=== PATIENT | female | born 1955 | race Caucasian/White ===

== ENCOUNTER 2017-10-15 23:42 | Emergency (ER) | payer OTHER ==
[~2017-10-15] VITALS: Ht 172.7 cm; Wt 68.0 kg
[~2017-10-15 23:42] MED LIST: ANAPROX DS550 MG PO; ANTIBIOTIC O500 U/GM TP; ANTIVERT/2525 MG PO; BACTRIM DS 8001 TA1 PO; BENADRYL25 MG PO; COUMADIN5 M2 PO; DITROPAN5 MG PO; EPI-PEN1 MG/ML MR; ESCITALOPRAM OX20 MG PO; FUROSEMIDE40 MG PO; HYCODAN/HYDROMET5 ML PO; KEFLEX500 MG PO; LIPITOR20 MG PO; LOVENOX100 MG/1 M SQ; MACROBID100 M1 PO; MECLIZINE HCL25 M2 PO; METOPROLOL25 MG PO; MOTRIN800 MG PO; OMEPRAZOLE D/R20 MG PO; PEPCID20 MG PO; POTASSIUM CHLO20 ME3 PO; PREDNICOT20 MG PO; ZANTAC150 MG PO
[2017-10-16] MEDS ORDERED: Motrin,Rufen800 MG PO (01:02)
== END 2017-10-16 01:26 | disposition home or self-care (01) ==
LOC: ED 23:42
DX: S93.402A Sprain of unspecified ligament of left ankle, initial encounter (principal); S83.412A Sprain of medial collateral ligament of left knee, initial encounter; Z79.899 Other long term (current) drug therapy; Z79.02 Long term (current) use of antithrombotics/antiplatelets; Z87.891 Personal history of nicotine dependence; W18.09XA Striking against other object with subsequent fall, initial encounter; Y93.89 Activity, other specified; Y92.89 Other specified places as the place of occurrence of the external cause; Y99.8 Other external cause status

== ENCOUNTER 2018-07-03 12:53 | Emergency (ER) | payer OTHER ==
[~2018-07-03] VITALS: Ht 167.6 cm; Wt 68.0 kg
[~2018-07-03 12:53] MED LIST changes: +Motrin,Rufen800 MG PO
[2018-07-03 14:44] LABS: BASO # 0.1 10*3/uL (0.0-0.1); BASO % 1.2 % (0.0-1.0); EOS # 0.3 10*3/uL (0.0-0.4); EOS % 3.2 % (1.0-4.0); HEMATOCRIT 49.9 % (37.0-47.0); HEMOGLOBIN 16.4 g/dl (12.0-16.0); LYMPH # 1.7 10*3/uL (1.3-4.4); LYMPH % 20.6 % (27.0-41.0); MEAN CELL VOLUME 92.4 fl (81.0-99.0); MEAN CORPUSCULAR HGB 30.4 pg (27.0-31.0); MEAN CORPUSCULAR HGB CONC 32.9 g/dl (33.0-37.0); MEAN PLATELET VOLUME 10.6 fl (9.6-12.3); MONO # 0.6 10*3/uL (0.1-1.0); MONO % 7.9 % (3.0-9.0); NEUT # 5.4 10*3/uL (2.3-7.9); NEUT % 66.7 % (47.0-73.0); PLATELET COUNT AUTOMATED 530 10*3/uL (130-400); RED CELL DISTRI WIDTH 14.7 % (0-14.5); WHITE BLOOD COUNT 8.1 10*3/uL (4.8-10.8)
[2018-07-03 15:13] LABS: ALBUMIN 3.7 gm/dl (3.1-4.5); ALKALINE PHOSPHATASE 90 U/L (45-117); BUN 11 mg/dl (7-24); CHLORIDE 109 mmol/L (98-107); CREATININE 0.82 mg/dL (0.55-1.02); SGOT/AST 26 IU/L (3-35); SGPT/ALT 27 U/L (12-78); SODIUM 141 mmol/L (136-145); TOTAL PROTEIN 7.9 gm/dL (6.4-8.2)
[2018-07-03] MEDS ORDERED: PROVENTIL HFA6.7 GM INH (16:21)
[2018-07-03] MEDS ORDERED: TESSALON PERLE100 M1 PO (16:21)
[2018-07-03] MEDS ORDERED: DOXYCYCLINE100 M3 PO (16:21)
[2018-07-03] MEDS ORDERED: PREDNISONE20 M1 PO (16:21)
== END 2018-07-03 16:39 | disposition home or self-care (01) ==
LOC: ED 12:53
PROVIDERS: Physician Assistant
DX: J40 Bronchitis, not specified as acute or chronic (principal); Z88.8 Allergy status to other drugs, medicaments and biological substances; Z79.899 Other long term (current) drug therapy; Z79.01 Long term (current) use of anticoagulants; Z90.49 Acquired absence of other specified parts of digestive tract; Z87.891 Personal history of nicotine dependence

== ENCOUNTER 2019-01-15 15:28 | Emergency (ER) | payer OTHER ==
[~2019-01-15] VITALS: Ht 167.6 cm; Wt 68.0 kg
[~2019-01-15 15:28] MED LIST changes: +DOXYCYCLINE100 M3 PO; +PREDNISONE20 M1 PO; +PROVENTIL HFA6.7 GM INH; +TESSALON PERLE100 M1 PO
[2019-01-15 15:56] LABS: BASO # 0.2 10*3/uL (0.0-0.1); BASO % 1.5 % (0.0-1.0); EOS # 0.3 10*3/uL (0.0-0.4); EOS % 2.3 % (1.0-4.0); HEMATOCRIT 45.8 % (37.0-47.0); LYMPH # 2.8 10*3/uL (1.3-4.4); LYMPH % 25.9 % (27.0-41.0); MEAN CELL VOLUME 91.8 fl (81.0-99.0); MEAN CORPUSCULAR HGB 30.1 pg (27.0-31.0); MEAN CORPUSCULAR HGB CONC 32.8 g/dl (33.0-37.0); MEAN PLATELET VOLUME 10.8 fl (9.6-12.3); MONO # 0.6 10*3/uL (0.1-1.0); MONO % 5.8 % (3.0-9.0); NEUT # 6.8 10*3/uL (2.3-7.9); NEUT % 64.1 % (47.0-73.0); PLATELET COUNT AUTOMATED 592 10*3/uL (130-400); RED BLOOD COUNT 4.99 10*6/uL (4.10-5.10); RED CELL DISTRI WIDTH 14.9 % (0-14.5); WHITE BLOOD COUNT 10.7 10*3/uL (4.8-10.8)
[2019-01-15 16:09] LABS: ACT PARTIAL THROMBO TIME 27.3 SECONDS (20.0-32.1); INTERNATIONAL NORM RATIO 1.1 (2.0-3.5)
[2019-01-15 16:13] LABS: ALBUMIN 3.7 gm/dl (3.1-4.5); ALKALINE PHOSPHATASE 65 U/L (45-117); BUN 13 mg/dl (7-24); CHLORIDE 110 mmol/L (98-107); CREATININE 0.89 mg/dL (0.55-1.02); POTASSIUM 3.6 mmol/L (3.5-5.1); SGOT/AST 19 IU/L (3-35); SGPT/ALT 28 U/L (12-78); SODIUM 141 mmol/L (136-145); TOTAL PROTEIN 6.9 gm/dL (6.4-8.2)
[2019-01-15 16:15] LABS: TROPONIN I < 0.015 ng/ml (<0.045)
[2019-01-15 17:02] LABS: BILIRUBIN NEGATIVE (NEGATIVE); BLOOD NEGATIVE (NEGATIVE); CLARITY CLEAR (CLEAR); COLOR YELLOW (YELLOW); GLUCOSE NEGATIVE (NEGATIVE); KETONE NEGATIVE (NEGATIVE); LEUKO ESTERASE NEGATIVE (NEGATIVE); NITRITE NEGATIVE (NEGATIVE); PH 5.5 (5.0-9.0)
[2019-01-15 17:34] LABS: BACTERIA TRACE
[2019-03-08] MEDS ORDERED: LISINOPRIL2.5 MG PO (10:35)
[2019-03-08] MEDS ORDERED: VITAMIN D5000 UNI1 PO (10:35)
[2019-03-08] MEDS ORDERED: LEADER ASPIRIN325 MG PO (10:37)
== END 2019-01-15 17:08 | disposition home or self-care (01) ==
LOC: ED 15:28
PROVIDERS: Family Medicine
DX: T67.5XXA Heat exhaustion, unspecified, initial encounter (principal); E86.0 Dehydration; R42 Dizziness and giddiness; R53.1 Weakness; X30.XXXA Exposure to excessive natural heat, initial encounter; Y93.89 Activity, other specified; Y92.89 Other specified places as the place of occurrence of the external cause; Y99.8 Other external cause status

== ENCOUNTER → 2019-03-11 | Day surgery (SDC) | payer OTHER ==
[~2019-03-11] VITALS: Ht 168.9 cm; Wt 75.3 kg
[~2019-03-11] MED LIST changes: +LEADER ASPIRIN325 MG PO; +LISINOPRIL2.5 MG PO; +VITAMIN D5000 UNI1 PO
[2019-03-11 09:06] VITALS: BP 122/71
[2019-03-11 09:57] VITALS: BP 114/68
[2019-03-11 10:08] VITALS: BP 118/72
[2019-03-11 10:27] VITALS: BP 121/72
== END | disposition home or self-care (01) ==
LOC: SDC 03-08 01:18
DX: Z12.11 Encounter for screening for malignant neoplasm of colon (principal); K57.30 Diverticulosis of large intestine without perforation or abscess without bleeding; I10 Essential (primary) hypertension; K21.9 Gastro-esophageal reflux disease without esophagitis; Z98.890 Other specified postprocedural states; Z98.51 Tubal ligation status; Z79.899 Other long term (current) drug therapy

== ENCOUNTER 2019-06-25 17:37 | Inpatient (IN) | payer OTHER ==
[~2019-06-25] VITALS: Ht 167.6 cm; Wt 75.1 kg
[2019-06-25 17:47] VITALS: BP 115/62
[2019-06-25 18:25] LABS: BASO # 0.1 10*3/uL (0.0-0.1); EOS # 0.2 10*3/uL (0.0-0.4); EOS % 1.6 % (1.0-4.0); HEMATOCRIT 49.7 % (37.0-47.0); HEMOGLOBIN 16.4 g/dl (12.0-16.0); LYMPH # 1.7 10*3/uL (1.3-4.4); LYMPH % 13.8 % (27.0-41.0); MEAN CELL VOLUME 92.9 fl (81.0-99.0); MEAN CORPUSCULAR HGB 30.7 pg (27.0-31.0); MEAN PLATELET VOLUME 10.8 fl (9.6-12.3); MONO # 0.5 10*3/uL (0.1-1.0); MONO % 4.3 % (3.0-9.0); NEUT # 9.6 10*3/uL (2.3-7.9); PLATELET COUNT AUTOMATED 473 10*3/uL (130-400); RED BLOOD COUNT 5.35 10*6/uL (4.10-5.10); RED CELL DISTRI WIDTH 14.6 % (0-14.5); WHITE BLOOD COUNT 12.2 10*3/uL (4.8-10.8)
[2019-06-25 18:39] LABS: ACT PARTIAL THROMBO TIME 28.5 SECONDS (20.0-32.1); INTERNATIONAL NORM RATIO 1.2 (2.0-3.5)
[2019-06-25 18:41] LABS: ALBUMIN 3.9 gm/dl (3.1-4.5); ALKALINE PHOSPHATASE 72 U/L (45-117); BUN 17 mg/dl (7-24); CHLORIDE 110 mmol/L (98-107); CREATININE 0.76 mg/dL (0.55-1.02); POTASSIUM 3.7 mmol/L (3.5-5.1); SGOT/AST 16 IU/L (3-35); SGPT/ALT 22 U/L (12-78); SODIUM 143 mmol/L (136-145); TOTAL PROTEIN 7.5 gm/dL (6.4-8.2)
[2019-06-25 18:42] LABS: TROPONIN I < 0.015 ng/ml (<0.045)
--- NOTE | 2019-06-25 20:17 | NUR ---
REPORT CALLED TO KAYLIE MERRITT 4E
--- NOTE | 2019-06-25 20:18 | NUR ---
PATIENT TRANSPORTED TO VIA RENATO MERRITT
[2019-06-25 20:20] VITALS: BP 118/56
--- NOTE | 2019-06-25 20:20 | NUR ---
A 64, admitted to , under the services of TOM Grande DO with a diagnosis of ORTHOSTATIC HYPOTENSION, NEAR SYNCOPE, DEHYDRATION. Chief complaint is DIZZINESS. Patient arrived via bed from ER. Monitor applied. Initial assessment completed. Vital signs taken and recorded. TOM GRANDE DO notified of admission to the unit. Orders received. See assessment for past medical history, medications and allergies. Patient and/or family oriented to unit. [facility] visitation policy reviewed. Clothing/patient valuable form completed. KAYLIE BOWMAN
--- NOTE | 2019-06-25 20:40 | NUR ---
DR MCDERMOTT ON THE FLOOR AND IS AWARE OF NEW ADMISSION, TOLD HIM THAT PT HOME MEDICATIONS ARE UP TO DATE
--- NOTE | 2019-06-25 23:33 | NUR ---
IV started right antecubital with #22 angiocath after 1 attempts. The IV site was prepped with Chloraprep. Heparin lock attached. IV solution NS infusing at 80 cc/hr. Sterile dressing applied. Patient tolerated precedure well. Procedure performed according to [facility] policy & procedure. KAYLIE BOWMAN
[2019-06-26] VITALS: BP 118/67
--- NOTE | 2019-06-26 03:22 | NUR ---
24 HR chart check completed.
--- NOTE | 2019-06-26 03:44 | NUR ---
Patient sleeping. Respirations relaxed and easy. EDGARS KAYLIE MCCORD
--- NOTE | 2019-06-26 06:04 | NUR ---
CALLED [facility] FOR NEW CONSULT AND THEY SENT A MESSAGE OUT TO HIM AND HE WILL CALL BACK
[2019-06-26 06:29] LABS: BASO # 0.1 10*3/uL (0.0-0.1); BASO % 1.1 % (0.0-1.0); EOS # 0.2 10*3/uL (0.0-0.4); EOS % 2.7 % (1.0-4.0); HEMATOCRIT 44.6 % (37.0-47.0); HEMOGLOBIN 14.5 g/dl (12.0-16.0); LYMPH # 1.6 10*3/uL (1.3-4.4); LYMPH % 19.3 % (27.0-41.0); MEAN CELL VOLUME 94.1 fl (81.0-99.0); MEAN CORPUSCULAR HGB 30.6 pg (27.0-31.0); MEAN CORPUSCULAR HGB CONC 32.5 g/dl (33.0-37.0); MEAN PLATELET VOLUME 11.1 fl (9.6-12.3); MONO # 0.3 10*3/uL (0.1-1.0); NEUT % 72.5 % (47.0-73.0); PLATELET COUNT AUTOMATED 372 10*3/uL (130-400); RED BLOOD COUNT 4.74 10*6/uL (4.10-5.10); RED CELL DISTRI WIDTH 14.2 % (0-14.5); WHITE BLOOD COUNT 8.2 10*3/uL (4.8-10.8)
[2019-06-26 07:06] LABS: ALBUMIN 3.3 gm/dl (3.1-4.5); ALKALINE PHOSPHATASE 55 U/L (45-117); BUN 15 mg/dl (7-24); CHLORIDE 114 mmol/L (98-107); CHOLESTEROL 96 mg/dL (<200); CREATININE 0.73 mg/dL (0.55-1.02); FREE T4 0.97 ng/dl (0.76-1.46); HDL CHOLESTEROL 37 mg/dl (40-60); LDL CHOLESTEROL 44 mg/dL (9-159); PHOSPHOROUS 2.1 mg/dL (2.5-4.9); POTASSIUM 3.5 mmol/L (3.5-5.1); SGOT/AST 12 IU/L (3-35); SGPT/ALT 18 U/L (12-78); SODIUM 146 mmol/L (136-145); TOTAL PROTEIN 6.2 gm/dL (6.4-8.2); TRIGLYCERIDES 73 mg/dl (<150); VLDL CHOLESTEROL 15 mg/dL (6-40)
[2019-06-26 07:21] LABS: ACT PARTIAL THROMBO TIME 27.9 SECONDS (20.0-32.1); INTERNATIONAL NORM RATIO 1.2 (2.0-3.5)
[2019-06-26 08:00] VITALS: BP 118/67
[2019-06-26 08:01] LABS: VITAMIN D, 25-HYDROXY 62.5 ng/mL (30-100)
--- NOTE | 2019-06-26 10:06 | NUR ---
[employer] in to talk to patient. Patient states lives at home with self. There are 1 steps in the home. Physician: Dr Jose Alejandro Ca [facility]acy: [facility], [address] Home health services: no Patient's level of ADLs: INDEPENDENT Patient has working utilities: Yes DME: No Follow-up physician's appointment after d/c: Yes Does patient want to access PORTAL?: No Discharge plan Patient lives alone without home health services. Anticipate pt returning home without any needs. . AISHA DAMON
--- NOTE | 2019-06-26 10:37 | NUR ---
CALLED DR BLACKMAN TO LET HIM KNNOW ABOUT ORTHOS THAT WERE NEGATIVE
--- NOTE | 2019-06-26 11:28 | NUR ---
PATIENT AMBULATED ENTIRE WHITE. GAIT STEADY. NO LIGHTHEADEDNESS OR DIZZINESS. ASYMPTOMATIC. BLOOD PRESSURE 134/70. HR 80. NOTIFIED.
[2019-06-26 12:00] VITALS: BP 124/75
[2019-06-26] MEDS ORDERED: ZOFRAN4 MG PO (12:18)
--- NOTE | 2019-06-26 13:00 | NUR ---
PATIENT DISCHARGED TO HOME. ALL PERSONAL BELONGINGS SENT WITH PATIENT. IV AND KETTLE ROOM HELPER DISCONTINUED. DISCHARGE INSTRUCTIONS GIVEN AND REVIEWED. PATIENT INSTRUCTED THAT ONE PRESCRIPTION WAS SENT TO [facility]. INSTRUCTED TO FOLLOW UP WITH PCP WITHIN ONE WEEK.
== END 2019-06-26 13:00 | disposition home or self-care (01) | DRG 204 ==
LOC: ED 17:37 → EDHOLD 19:34 → 4E 20:11
PROVIDERS: Emergency Medicine; Internal Medicine; ADMIT Emergency Medicine
DX: I95.1 Orthostatic hypotension (principal); E86.0 Dehydration; D47.3 Essential (hemorrhagic) thrombocythemia; E80.6 Other disorders of bilirubin metabolism; E87.8 Other disorders of electrolyte and fluid balance, not elsewhere classified; E78.5 Hyperlipidemia, unspecified; F32.9 Major depressive disorder, single episode, unspecified; I10 Essential (primary) hypertension; K21.9 Gastro-esophageal reflux disease without esophagitis; A08.4 Viral intestinal infection, unspecified; Z95.2 Presence of prosthetic heart valve; Z95.0 Presence of cardiac pacemaker; Z79.82 Long term (current) use of aspirin; Z79.899 Other long term (current) drug therapy; Z90.49 Acquired absence of other specified parts of digestive tract; Z98.51 Tubal ligation status; Z87.891 Personal history of nicotine dependence; Z80.0 Family history of malignant neoplasm of digestive organs; Z82.0 Family history of epilepsy and other diseases of the nervous system

== ENCOUNTER 2019-12-18 10:35 | Emergency (ER) | payer OTHER ==
[~2019-12-18] VITALS: Ht 167.6 cm; Wt 68.0 kg
[~2019-12-18 10:35] MED LIST changes: +ZOFRAN4 MG PO
[2019-12-18] MEDS ORDERED: GOOD NEIGHBOR M25 M1 PO (11:10)
== END 2019-12-18 11:16 | disposition home or self-care (01) ==
LOC: ED 10:35
DX: H81.13 Benign paroxysmal vertigo, bilateral (principal); K21.9 Gastro-esophageal reflux disease without esophagitis; I10 Essential (primary) hypertension; Z79.899 Other long term (current) drug therapy; Z79.82 Long term (current) use of aspirin; Z87.891 Personal history of nicotine dependence

== ENCOUNTER → 2020-02-09 | Outpatient (CLI) | payer OTHER ==
[~2020-02-09] MED LIST changes: +GOOD NEIGHBOR M25 M1 PO
== END | disposition home or self-care (01) ==
LOC: MAMMO 13:53
PROVIDERS: ATTEND Nurse Practitioner Family
DX: Z12.31 Encounter for screening mammogram for malignant neoplasm of breast (principal)

== ENCOUNTER → 2022-02-18 | Outpatient (CLI) | payer MEDICARE, OTHER | END | disposition home or self-care (01) | LOC: RESCLI 14:12 | PROVIDERS: ATTEND Internal Medicine | DX: I10 Essential (primary) hypertension (principal); D45 Polycythemia vera; E78.2 Mixed hyperlipidemia; E55.9 Vitamin D deficiency, unspecified; F10.10 Alcohol abuse, uncomplicated; I48.91 Unspecified atrial fibrillation; I25.10 Atherosclerotic heart disease of native coronary artery without angina pectoris; K57.90 Diverticulosis of intestine, part unspecified, without perforation or abscess without bleeding; K57.30 Diverticulosis of large intestine without perforation or abscess without bleeding; Z95.2 Presence of prosthetic heart valve; Z90.49 Acquired absence of other specified parts of digestive tract; Z98.890 Other specified postprocedural states; Z88.1 Allergy status to other antibiotic agents; Z79.82 Long term (current) use of aspirin; Z79.899 Other long term (current) drug therapy ==

== ENCOUNTER → 2022-04-11 | Outpatient (CLI) | payer MEDICARE, OTHER ==
[~2022-04-11] MED LIST changes: +ASPIR-TRIN325 MG PO; +HYDROXYUREA500 MG PO; +XARE20MG PO
== END | disposition home or self-care (01) ==
LOC: CARD 11:52
PROVIDERS: ATTEND Internal Medicine Cardiovascular Disease
DX: Z95.2 Presence of prosthetic heart valve (principal)

== ENCOUNTER → 2022-08-26 | Outpatient (CLI) | payer MEDICARE, OTHER | END | disposition home or self-care (01) | LOC: MAMMO 08:46 | PROVIDERS: ATTEND Nurse Practitioner Family | DX: Z12.31 Encounter for screening mammogram for malignant neoplasm of breast (principal) ==

== ENCOUNTER 2022-10-02 13:47 | Inpatient (IN) | payer MEDICARE, MEDICAID ==
[~2022-10-02] VITALS: Ht 167.6 cm; Wt 80.3 kg
[2022-10-02 13:48] VITALS: BP 140/76
[2022-10-02 14:36] LABS: BASO # 0.1 10*3/uL (0.0-0.1); BASO % 0.8 % (0.0-1.0); EOS # 0.1 10*3/uL (0.0-0.4); EOS % 1.6 % (1.0-4.0); HEMATOCRIT 46.1 % (37.0-47.0); LYMPH % 11.7 % (27.0-41.0); MEAN CELL VOLUME 96.2 fl (81.0-99.0); MEAN CORPUSCULAR HGB 32.6 pg (27.0-31.0); MEAN CORPUSCULAR HGB CONC 33.8 g/dl (33.0-37.0); MEAN PLATELET VOLUME 11.1 fl (9.6-12.3); MONO # 0.4 10*3/uL (0.1-1.0); NEUT # 6.9 10*3/uL (2.3-7.9); NEUT % 80.4 % (47.0-73.0); PLATELET COUNT AUTOMATED 221 10*3/uL (130-400); RED BLOOD COUNT 4.79 10*6/uL (4.10-5.10); RED CELL DISTRI WIDTH 16.3 % (0-14.5); WHITE BLOOD COUNT 8.6 10*3/uL (4.8-10.8)
[2022-10-02 14:47] LABS: ACT PARTIAL THROMBO TIME 32.5 SECONDS (20.0-32.1); INTERNATIONAL NORM RATIO 1.3 (2.0-3.5)
[2022-10-02 15:08] LABS: ALKALINE PHOSPHATASE 74 U/L (46-116); BUN 9 mg/dl (9-23); CHLORIDE 107 mmol/L (98-107); LIPASE 41 U/L (12-53); POTASSIUM 4.3 mmol/L (3.4-5.1); SGPT/ALT 17 U/L (10-49)
[2022-10-02 19:04] VITALS: BP 132/75
[2022-10-03 07:53] LABS: BASO # 0.1 10*3/uL (0.0-0.1); BASO % 0.9 % (0.0-1.0); EOS # 0.2 10*3/uL (0.0-0.4); EOS % 2.1 % (1.0-4.0); HEMATOCRIT 44.8 % (37.0-47.0); LYMPH # 1.6 10*3/uL (1.3-4.4); LYMPH % 20.3 % (27.0-41.0); MEAN CORPUSCULAR HGB 31.4 pg (27.0-31.0); MEAN CORPUSCULAR HGB CONC 32.4 g/dl (33.0-37.0); MEAN PLATELET VOLUME 11.5 fl (9.6-12.3); MONO # 0.4 10*3/uL (0.1-1.0); MONO % 4.7 % (3.0-9.0); NEUT # 5.5 10*3/uL (2.3-7.9); NEUT % 71.3 % (47.0-73.0); PLATELET COUNT AUTOMATED 221 10*3/uL (130-400); RED BLOOD COUNT 4.62 10*6/uL (4.10-5.10); RED CELL DISTRI WIDTH 16.3 % (0-14.5); WHITE BLOOD COUNT 7.7 10*3/uL (4.8-10.8)
[2022-10-03 08:12] LABS: ALKALINE PHOSPHATASE 70 U/L (46-116); BUN 9 mg/dl (9-23); CHLORIDE 107 mmol/L (98-107); POTASSIUM 4.1 mmol/L (3.4-5.1); SGPT/ALT 16 U/L (10-49); TOTAL PROTEIN 6.6 gm/dL (6.0-8.0)
[2022-10-03 08:55] VITALS: BP 129/79
== END 2022-10-03 10:36 | disposition home or self-care (01) | DRG 149 ==
LOC: ED 13:47 → EDHOLD 15:39
PROVIDERS: Emergency Medicine; Student in an Organized Health Care Education/Training Program; ADMIT Student in an Organized Health Care Education/Training Program; ATTEND Student in an Organized Health Care Education/Training Program
DX: H81.13 Benign paroxysmal vertigo, bilateral (principal); K21.9 Gastro-esophageal reflux disease without esophagitis; I50.9 Heart failure, unspecified; E78.5 Hyperlipidemia, unspecified; Z66 Do not resuscitate; I11.0 Hypertensive heart disease with heart failure; F32.A Depression, unspecified; R73.9 Hyperglycemia, unspecified; D45 Polycythemia vera; Z90.49 Acquired absence of other specified parts of digestive tract; Z98.51 Tubal ligation status; Z81.8 Family history of other mental and behavioral disorders; Z80.0 Family history of malignant neoplasm of digestive organs

== ENCOUNTER → 2022-12-24 | Outpatient (CLI) | payer MEDICARE, MEDICAID ==
[2022-12-24 11:21] LABS: ALKALINE PHOSPHATASE 62 U/L (46-116); BUN 10 mg/dl (9-23); CHLORIDE 111 mmol/L (98-107); CHOLESTEROL 114 mg/dL (<200); LDL CHOLESTEROL 47 mg/dL (9-159); POTASSIUM 3.6 mmol/L (3.4-5.1); SGPT/ALT 13 U/L (10-49); TRIGLYCERIDES 130 mg/dl (<150)
== END | disposition home or self-care (01) ==
LOC: LAB 10:20
PROVIDERS: ATTEND Nurse Practitioner Family
DX: I10 Essential (primary) hypertension (principal); E78.2 Mixed hyperlipidemia; E55.9 Vitamin D deficiency, unspecified

== ENCOUNTER → 2023-04-07 | Outpatient (CLI) | payer MEDICARE, MEDICAID ==
[2023-04-07 14:24] LABS: FREE T4 1.12 ng/dl (0.89-1.76)
[2023-04-08 08:09] LABS: THYROID PEROXIDASE (TPO) AB 18 IU/mL (0-34)
[2023-04-08 15:07] LABS: THYROGLOBULIN ANTIBODY <1.0 IU/mL (0.0-0.9)
== END | disposition home or self-care (01) ==
LOC: LAB 12:53
PROVIDERS: ATTEND Nurse Practitioner Primary Care
DX: R79.89 Other specified abnormal findings of blood chemistry (principal); Z79.899 Other long term (current) drug therapy

== ENCOUNTER → 2023-07-21 | Outpatient (CLI) | payer MEDICARE, MEDICAID ==
[2023-07-21 11:13] LABS: BASO # 0.1 10*3/uL (0.0-0.1); BASO % 1.3 % (0.0-1.0); EOS # 0.3 10*3/uL (0.0-0.4); HEMATOCRIT 49.1 % (37.0-47.0); LYMPH % 21.8 % (27.0-41.0); MEAN PLATELET VOLUME 10.9 fl (9.6-12.3); MONO # 0.6 10*3/uL (0.1-1.0); MONO % 5.9 % (3.0-9.0); NEUT # 6.3 10*3/uL (2.3-7.9); NEUT % 67.7 % (47.0-73.0); PLATELET COUNT AUTOMATED 305 10*3/uL (130-400); RED BLOOD COUNT 4.63 10*6/uL (4.10-5.10); RED CELL DISTRI WIDTH 14.2 % (0-14.5); WHITE BLOOD COUNT 9.4 10*3/uL (4.8-10.8)
[2023-07-21 11:55] LABS: TOTAL PROTEIN 7.6 gm/dL (6.0-8.0)
[2023-07-21 12:31] LABS: VITAMIN D, 25-HYDROXY 54.8 ng/mL (30-100)
== END | disposition home or self-care (01) ==
LOC: LAB 10:56
PROVIDERS: ATTEND Nurse Practitioner Family
DX: R42 Dizziness and giddiness (principal); R68.89 Other general symptoms and signs; E55.9 Vitamin D deficiency, unspecified; I50.9 Heart failure, unspecified